=== PATIENT | female | born 1960 | race Caucasian/White ===

== ENCOUNTER 2016-09-16 18:00 | Observation (INO) | payer BC, OTHER ==
[2016-09-16] MEDS ORDERED: Ondansetron INJ* 2 MG/ML VIAL IV PRN (18:31)
[2016-09-16] MEDS ORDERED: Metoclopramide IV* 5 MG/ML 2 ML VIAL IV PRN (18:32)
[2016-09-16] MEDS ORDERED: Prochlorperazine TAB* 10 MG PO PRN (18:33)
[2016-09-16] MEDS ORDERED: PROCHLORPERAZINE INJ 5 MG/ML 2 ML VIAL IV PRN (18:33)
[2016-09-16] MEDS ORDERED: traZODone TAB* 50 MG TAB PO PRN (18:34)
[2016-09-16] MEDS ORDERED: Acetaminophen TAB* 325 MG PO PRN (18:34)
[2016-09-16] MEDS: Heparin VIAL(*) 5000 UNITS/ML VIAL (FIVE THOUSAND) SUBCUT SCH (21:33)
[2016-09-16] MEDS: Morphine INJ* 10 MG/ML 1 ML CARPUJECT IV PRN (21:39)
[2016-09-17] MEDS: NS 0.9% 1000 ML* 1,000 ML IV SCH ×2 (01:15→08:14)
[2016-09-17] MEDS: Morphine INJ* 10 MG/ML 1 ML CARPUJECT IV PRN (03:49)
[2016-09-17 06:32] LABS: Hematocrit 39 % (35-47); Mean Corpuscular HGB Conc 34 g/dl (31-36); Mean Corpuscular Hemoglobin 31 pg (27-31); Mean Corpuscular Volume 91 fL (80-97); Mean Platelet Volume 9 um3 (7.4-10.4); Red Blood Count 4.23 10^6/ul (4.0-5.4); Red Cell Distribution Width 14 % (10.5-15); White Blood Count 10.8 10^3/ul (3.5-10.8)
[2016-09-17] MEDS: Heparin VIAL(*) 5000 UNITS/ML VIAL (FIVE THOUSAND) SUBCUT SCH (06:38)
[2016-09-17 06:52] LABS: Albumin 3.3 g/dL (3.2-5.2); BUN/Creatinine Ratio 21.4 (8-20); Calcium 7.4 mg/dL (8.6-10.3); EGFR African American 110.9 (>60); EGFR Non-African American 86.2 (>60); Globulin 2.5 g/dL (2-4); Potassium 3.1 mmol/L (3.5-5.0); Total Bilirubin 1.4 mg/dL (0.2-1.0); Total Protein 5.8 g/dL (6.4-8.9)
[2016-09-17 08:53] VITALS: BP 117/60
--- NOTE | 2016-09-17 11:09 | PN ---
Progress Note - Progress Note SOAP: Subjective: []Better today. Nausea medication x 2 overnight and not needed this am. Still abd cramping, diarrhea stopped. No fever or chills. Acetaminophen (Tylenol Tab*) 650 mg PO Q6H PRN PRN Reason: NOT SPECIFIED Heparin Sodium (Porcine) (Heparin Vial(*)) 5,000 units SUBCUT Q8HR [facility] Last Admin: 09/17/16 06:38 Dose: 5,000 units Sodium Chloride (Ns 0.9% 1000 Ml*) 1,000 mls @ 150 mls/hr IV PER RATE [facility] Last Admin: 09/17/16 08:14 Dose: 150 mls/hr Metoclopramide HCl (Reglan Iv*) 10 mg IV Q6H PRN PRN Reason: NOT SPECIFIED Morphine Sulfate (Morphine Inj (Syringe)*) 5 mg IV Q6H PRN PRN Reason: PAIN Last Admin: 09/17/16 03:49 Dose: 5 mg Ondansetron HCl (Zofran Inj*) 8 mg IV Q8H PRN PRN Reason: NAUSEA/VOMITING Last Admin: 09/16/16 19:28 Dose: 8 mg Prochlorperazine (Compazine Tab*) 10 mg PO Q6H PRN PRN Reason: NOT SPECIFIED Prochlorperazine Edisylate (Compazine Inj*) 10 mg IV Q6H PRN PRN Reason: NOT SPECIFIED Last Admin: 09/17/16 01:20 Dose: 10 mg Trazodone HCl (Desyrel Tab*) 50 mg PO BEDTIME PRN PRN Reason: SLEEP Last Admin: 09/16/16 21:39 Dose: 50 mg Objective: [] Vital Signs Temp Pulse Resp BP Pulse Ox 98.4 F 72 14 117/60 93 09/17/16 07:45 09/17/16 07:45 09/17/16 08:00 09/17/16 07:45 09/17/16 07:45 HEENT - negative CTA. s. RRR S1S2 Diffuse tenderness, no rebound. No masses or HSM Ext w/o edema Assessment: []Acute gastroenteritis, likely viral. Plan: []1. Will discharge home 2. BRAT diet for several days then expand 3. Low K, will improve as oral intake improves, eat bananas 4. Keep regular follow up, call with additional symptoms
--- NOTE | 2016-10-06 00:43 | DS ---
HISTORY AND PHYSICAL FOR OBV DISCHARGE: ADDENDUM: She was admitted with antiemetics and hydration. She received nausea medicine and did better. This morning eating well. No additional nausea and feels ready to be discharged. No additional studies or tests ordered. She will be discharged to home. Light diet, BRAT. Fluids for several days and then advanced as julia erated. Keep regular followup with Dr. Serrano. [id number]/CPS #: [id number]
== END 2016-09-17 12:55 | disposition home or self-care (01) ==
LOC: INTOOBSV 18:00 → MED 18:00
PROVIDERS: ADMIT Internal Medicine Hematology & Oncology; ATTEND Internal Medicine Hematology & Oncology
DX: K52.9 Noninfective gastroenteritis and colitis, unspecified (principal); R10.9 Unspecified abdominal pain; R19.7 Diarrhea, unspecified; K21.9 Gastro-esophageal reflux disease without esophagitis; C50.911 Malignant neoplasm of unspecified site of right female breast; Z17.0 Estrogen receptor positive status [ER+]; Z88.5 Allergy status to narcotic agent; Z88.2 Allergy status to sulfonamides
CPT/HCPCS: 36415; 80053; 82272; 83735; 85025; 85027; 99217; 99219; A9270-GY; G0378; J0780; J1644; J2270; J2405; Q0164

== ENCOUNTER 2018-12-19 11:04 | Emergency (ER) | payer MEDICARE, BC ==
--- NOTE | 2018-12-19 11:17 | ED ---
Abdominal Pain/Female - HPI Summary HPI Summary: This patient is a 58 year old F presenting to [facility] with a chief complaint of abdominal cramping and nausea for the past four days worsening this morning. She additionally reports recent constipation that has change to diarrhea. Denies vomiting. Pain rated 6/10 in severity. Patient took 4mg X2 Zofran, prescribed by Dr. Tovar, without significant relief. Patient is currently on chemotherapy for breast cancer with metastasis to the sternum and lungs. Allergies reviewed. Patient sent to the ED by Dr. Tovar. - History of Current Complaint Chief Complaint: EDAbdPain Stated Complaint: "CHEMO PT ABD CRAMPING PER PT" Time Seen by Provider: 12/19/18 11:15 Hx Obtained From: Patient Onset/Duration: Gradual Onset, Lasting Days Timing: Constant Severity Currently: Moderate Pain Intensity: 5 Pain Scale Used: 0-10 Numeric Location: Diffuse Character: Cramping Alleviating Factor(s): Nothing Associated Signs and Symptoms: Positive: Constipation, Nausea, Diarrhea. Negative: Vomiting Allergies/Adverse Reactions: Allergies Allergy/AdvReac Type Severity Reaction Status Date / Time oxycodone Allergy Intermediate Rash Verified 12/19/18 20:46 Sulfa (Sulfonamide Allergy Intermediate Rash Verified 12/19/18 20:46 Antibiotics) CHLOROPREP? Allergy RED, ITCHY Uncoded 12/19/18 20:46 SKIN PAIN KILLER Allergy N/V Uncoded 12/19/18 20:46 Home Medications: Home Medications Coreg TAB* 3.125 mg PO DAILY 12/19/18 [History Confirmed 12/19/18] Flovent Hfa 44 mcg(NF) 44 mcg INH QID PRN 12/19/18 [History Confirmed 12/19/18] Rosuvastatin Calcium 40 mg PO BEDTIME 12/19/18 [History Confirmed 12/19/18] Zofran 4 MG Tab* 4 mg PO Q4HR 12/19/18 [History Confirmed 12/19/18] PMH/Surg Hx/FS Hx/Imm Hx Endocrine/Hematology History: Reports: Hx Anemia - A CHILD Denies: Hx Diabetes, Hx Systemic Lupus Erythematosus Cardiovascular History: Denies: Hx Congestive Heart Failure, Hx Hypertension, Other Cardiovascular Problems/Disorders Respiratory History: Reports: Hx Asthma GI History: Reports: Hx Gastroesophageal Reflux Disease - ON MEDS Comment Only: Other GI Disorders - reflux History: Denies: Hx Dialysis, Hx Renal Disease Musculoskeletal History: Reports: Hx Arthritis - ARTHRITIS IN BACK, Hx Bursitis - SHOULDERS, Hx Tendonitis - SHOULDERS Denies: Hx Rheumatoid Arthritis Comment Only: Other Musculoskeletal History - left litte toe Sensory History: Reports: Hx Contacts or Glasses - READING GLASSES Denies: Hx Hearing Aid Opthamlomology History: Reports: Hx Contacts or Glasses - READING GLASSES Neurological History: Denies: Other Neuro Impairments/Disorders - Cancer History Cancer Type, Location and Year: BREAST Hx Chemotherapy: Yes - BREAST Hx Radiation Therapy: Yes - BREAST, 09/05 [facility] - Surgical History Surgery Procedure, Year, and Place: lumpectomy 08/14/12 left side, tonsils, port placement and removal Hx Anesthesia Reactions: Yes - DIFF WAKING UP Infectious Disease History: No Infectious Disease History: Denies: Traveled Outside the [place] in Last 30 Days - Family History Known Family History: Negative: Renal Disease - Social History Alcohol Use: Rare Substance Use Type: Reports: None Smoking Status (MU): Never Smoked Tobacco Review of Systems Negative: Fever Positive: Abdominal Pain, Diarrhea, Nausea. Negative: Vomiting All Other Systems Reviewed And Are Negative: Yes Physical Exam - Summary Physical Exam Summary: GENERAL: Patient is a well-developed and nourished F who is lying comfortable in the stretcher. Patient is not in any acute respiratory distress. HEAD AND FACE: Normocephalic EYES: PERRLA, EOMI x 2. EARS: Hearing grossly intact. MOUTH: Oropharynx within normal limits. NECK: Supple, trachea is midline, no adenopathy, no JVD, no carotid bruit. CHEST: Symmetric, no tenderness at palpation LUNGS: Clear to auscultation bilaterally. No wheezing or crackles. CVS: Regular rate and rhythm, S1 and S2 present, no murmurs or gallops appreciated. ABDOMEN: Soft, with diffuse mild tenderness to palpation. Bowel sounds are normal. No abnormal abdominal pulsations. EXTREMITIES: Full ROM in all major joints, no edema, no cyanosis or clubbing. NEURO: Alert and oriented x 3. No acute neurological deficits. Speech is normal and follows commands. SKIN: Dry and warm Triage Information Reviewed: Yes Vital Signs On Initial Exam: Initial Vitals Temp Pulse Resp BP Pulse Ox 97.1 F 76 16 145/89 96 12/19/18 11:06 12/19/18 11:06 12/19/18 11:06 12/19/18 11:06 12/19/18 11:06 Vital Signs Reviewed: Yes Diagnostics - Vital Signs Vital Signs Temp Pulse Resp BP Pulse Ox 12/19/18 11:06 97.1 F 76 16 145/89 96 - Laboratory Result Diagrams: 12/19/18 11:49 12/19/18 11:49 Lab Statement: Any lab studies that have been ordered have been reviewed, and results considered in the medical decision making process. - CT CT A/P CT Interpretation Completed By: Radiologist Summary of CT Findings: 1. There is questionable mild bowel wall thickening involving the distal and terminal. ileum. Please correlate to clinical signs or symptoms of infectious or inflammatory. enteritis. 2. Normal appendix. 3. Chronic appearing and there are degenerative findings described in the body the report. unlikely to be related to the patient's current presentation. ED Physician has reviewed this report. Abdominal Pain Fem Course/Dx - Course Course Of Treatment: 58 year old F presenting to [facility] with a chief complaint of abdominal cramping and nausea for the past four days worsening this morning. Patient took 4mg X2 Zofran, prescribed by Dr. Tovar, without significant relief. Patient is currently on chemotherapy for breast cancer with metastasis to the sternum and lungs. Bloodwork obtained total bilirubin of 3.5 and AST of 45 but is similar compared to previous. UA is unremarkable A CT A/P reveals, " 1. There is questionable mild bowel wall thickening involving the distal and terminal. ileum. Please correlate to clinical signs or symptoms of infectious or inflammatory. enteritis. 2. Normal appendix. 3. Chronic appearing and there are degenerative findings described in the body the report. unlikely to be related to the patient's current presentation.". At 15:14 ase discussed with patient's oncologist, Dr. Tovar, who recommends discharge with abx and pain medication and to follow up with him. Patient is given prescription for flagyl, augmentin, phenergan, and tramadolI discussed results with patient, and she reports feeling better. She is hemodynamically stable and safe for discharge. Strict return precautions given and she will otherwise follow up with Dr. Tovar. - Diagnoses Provider Diagnoses: Abdominal pain, Enteritis Discharge - Sign-Out/Discharge Documenting (check all that apply): Patient Departure - discharge Patient Received Moderate/Deep Sedation with Procedure: No - Discharge Plan Condition: Stable Disposition: HOME Prescriptions: Amoxicillin/Clavulanate TAB* [Augmentin TAB 875*] 875 mg PO BID #20 tab metroNIDAZOLE [Flagyl] 500 mg PO TID #30 tablet Promethazine TAB* [Phenergan TAB*] 25 mg PO Q8H PRN #12 tab PRN Reason: Nausea traMADol TAB* [Ultram*] 50 mg PO Q8H PRN #12 tab MDD 3 PRN Reason: Pain Patient Education Materials: Enteritis (ED) Referrals: Franck Tovar MD [Medical Doctor] - 2 Days Additional Instructions: RETURN TO THE EMERGENCY DEPARTMENT FOR CHANGING OR WORSENING SYMPTOMS. Otherwise follow up with Dr. Tovar. - Billing Disposition and Condition Condition: STABLE Disposition: Home - Attestation Statements Document Initiated by Eddy: Yes Documenting Scribe: Romi Badillo Provider For Whom Eddy is Documenting (Include Credential): Jose Maria MD Scribe Attestation: Romi Gooden, scribed for Jose Maria MD on 12/19/18 at 2106. Scribe Documentation Reviewed: Yes Provider Attestation: The documentation as recorded by the Romi mata accurately reflects the service I personally performed and the decisions made by , Jose Maria MD Status of Scribe Document: Viewed
[2018-12-19] MEDS ORDERED: NS 0.9% 1000 ML** 1,000 ML IV ONE (11:21)
[2018-12-19] MEDS ORDERED: Morphine 4 MG/ML VIAL (1 ml) 4 MG/ML VIAL IV ONE (11:23)
[2018-12-19] MEDS ORDERED: Metoclopramide IV* 5 MG/ML 2 ML VIAL IV ONE (11:23)
[2018-12-19 12:01] LABS: ABS Eosinophils 0.1 10^3/ul (0-0.6); ABS Lymphocytes 0.9 10^3/ul (1.0-4.8); ABS Monocytes 0.4 10^3/ul (0-0.8); ABS Neutrophils 3.7 10^3/ul (1.5-7.7); Eosinophil % 2.4 %; Hematocrit 38 % (35-47); Hemoglobin 12.8 g/dL (12.0-16.0); Lymphocyte % 17.7 %; Mean Corpuscular HGB Conc 34 g/dL (31-36); Mean Corpuscular Hemoglobin 35 pg (27-31); Mean Corpuscular Volume 104 fL (80-97); Mean Platelet Volume 7.8 fL (7.4-10.4); Nucleated Red Blood Cells % 0.1; Platelet Count 204 10^3/uL (150-450); Red Blood Count 3.63 10^6 /uL (3.70-4.87); Red Cell Distribution Width 19 % (10.5-15); White Blood Count 5.2 10^3/uL (3.5-10.8)
[2018-12-19 12:19] LABS: ALT 42 U/L (7-52); AST 45 U/L (13-39); Albumin 3.9 g/dL (3.2-5.2); Albumin/Globulin Ratio 1.7 (1-3); Alkaline Phosphatase 59 U/L (34-104); Anion Gap 8 mmol/L (2-11); BUN/Creatinine Ratio 16.4 (8-20); Blood Urea Nitrogen 12 mg/dL (6-24); C Reactive Protein < 1.00 mg/L (<8.01); CO2 Carbon Dioxide 25 mmol/L (22-32); Calcium 8.2 mg/dL (8.6-10.3); Chloride 103 mmol/L (101-111); EGFR African American 98.7 (>60); EGFR Non-African American 81.6 (>60); Globulin 2.3 g/dL (2-4); Glucose 118 mg/dL (70-100); Potassium 3.4 mmol/L (3.5-5.0); Sodium 136 mmol/L (135-145); Total Protein 6.2 g/dL (6.4-8.9)
[2018-12-19 14:11] LABS: Urine Appearance Clear; Urine Bacteria Absent (Absent); Urine Bilirubin Negative (Negative); Urine Blood 1+ (Negative); Urine Color Straw; Urine Glucose Negative (Negative); Urine Ketones Negative (Negative); Urine Nitrite Negative (Negative); Urine Protein Negative (Negative); Urine Red Blood Cell 1+(3-5/hpf) (Absent); Urine Specific Gravity 1.005 (1.010-1.030); Urine Squamous Epithelial Cell Present (Absent); Urine Urobilinogen Negative (Negative); Urine White Blood Cell Trace(0-5/hpf) (Absent)
[2018-12-19] MEDS ORDERED: Iohexol 300* (CONTRAST) 10 ML SDV IV ONE (14:25)
[2018-12-19] MEDS ORDERED: Amoxicillin/Clavulanate TAB* 875 MG PO ONE (15:19)
[2018-12-19] MEDS ORDERED: metroNIDAZOLE * 500 MG TABLET PO ONE (16:00)
[2018-12-19 16:07] VITALS: BP 128/86
== END 2018-12-19 16:06 | disposition home or self-care (01) ==
LOC: ED 11:04
DX: K52.9 Noninfective gastroenteritis and colitis, unspecified (principal); R10.9 Unspecified abdominal pain; C50.919 Malignant neoplasm of unspecified site of unspecified female breast; C78.02 Secondary malignant neoplasm of left lung; C78.01 Secondary malignant neoplasm of right lung; C79.51 Secondary malignant neoplasm of bone; K21.9 Gastro-esophageal reflux disease without esophagitis; J45.909 Unspecified asthma, uncomplicated; Z88.2 Allergy status to sulfonamides; Z88.5 Allergy status to narcotic agent; Z88.8 Allergy status to other drugs, medicaments and biological substances; Z79.899 Other long term (current) drug therapy
CPT/HCPCS: 36415; 74177; 80053; 81003; 81015; 82140; 83605; 83690; 85025; 85730; 86140; 87040; 87086; 96361; 96374; 96375; 99283; A9270-GY; J2270; J2765; Q9967

== ENCOUNTER 2018-12-19 20:43 | Inpatient (IN) | payer MEDICARE, BC ==
[2018-12-19] MEDS ORDERED: NS 0.9% 1000 ML** 2,000 ML IV ONE (22:30)
--- NOTE | 2018-12-19 22:30 | ED ---
GI/ HPI - HPI Summary HPI Summary: This patient is a 58 year old F brought to ED via EMS with a chief complaint of abdominal cramping and N/D since 0900 this morning. Patient was in the ED earlier today for same symptoms and was diagnosed with gastroenteritis. Patient reports not feeling better. She was given antibiotics, but vomited them up immediately. Patient is on Xeloda chemotherapy, just finishing her second cycle. The patient rates the pain 10/10 in severity. Symptoms aggravated by nothing. Symptoms alleviated by nothing. Patient denies fever. PMHx of metastatic breast CA, asthma, GERD. PSHx of lumpectomy, but no abdominal surgery. Denies FHx of renal disease. Patient rarely uses alcohol, does not use substances or tobacco. - History of Current Complaint Chief Complaint: EDNauseaVomitDiarrh Time Seen by Provider: 12/19/18 22:21 Stated Complaint: ABD PAIN PER EMS Hx Obtained From: Patient Onset/Duration: Started Hours Ago - 0900 this morning, Still Present, Worse Since Severity: Severe Pain Intensity: 10 Pain Characteristics: Cramping Associated Signs and Symptoms: Positive: Negative - Fever, Nausea, Diarrhea Aggravating Factor(s): Nothing Alleviating Factor(s): Nothing - Additional Pertinent History Primary Care Physician: [id number] - Allergy/Home Medications Allergies/Adverse Reactions: Allergies Allergy/AdvReac Type Severity Reaction Status Date / Time oxycodone Allergy Intermediate Rash Verified 12/19/18 20:46 Sulfa (Sulfonamide Allergy Intermediate Rash Verified 12/19/18 20:46 Antibiotics) chlorhexidine Allergy Itching Verified 12/20/18 00:27 meperidine [From Demerol] AdvReac Nausea And Verified 12/20/18 00:27 Vomiting PMH/Surg Hx/FS Hx/Imm Hx Endocrine/Hematology History: Reports: Hx Anemia - A CHILD Denies: Hx Diabetes, Hx Systemic Lupus Erythematosus Cardiovascular History: Denies: Hx Congestive Heart Failure, Hx Hypertension, Other Cardiovascular Problems/Disorders Respiratory History: Reports: Hx Asthma GI History: Reports: Hx Gastroesophageal Reflux Disease - ON MEDS Comment Only: Other GI Disorders - reflux History: Denies: Hx Dialysis, Hx Renal Disease Musculoskeletal History: Reports: Hx Arthritis - ARTHRITIS IN BACK, Hx Bursitis - SHOULDERS, Hx Tendonitis - SHOULDERS Denies: Hx Rheumatoid Arthritis Comment Only: Other Musculoskeletal History - left litte toe Sensory History: Reports: Hx Contacts or Glasses - READING GLASSES Denies: Hx Hearing Aid Opthamlomology History: Reports: Hx Contacts or Glasses - READING GLASSES Neurological History: Denies: Other Neuro Impairments/Disorders - Cancer History Cancer Type, Location and Year: BREAST Hx Chemotherapy: Yes - BREAST Hx Radiation Therapy: Yes - BREAST, 09/05 [facility] - Surgical History Surgery Procedure, Year, and Place: lumpectomy 08/14/12 left side, tonsils, port placement and removal Hx Anesthesia Reactions: Yes - DIFF WAKING UP Infectious Disease History: No Infectious Disease History: Denies: Traveled Outside the [place] in Last 30 Days - Family History Known Family History: Negative: Renal Disease - Social History Alcohol Use: Rare Substance Use Type: Reports: None Smoking Status (MU): Never Smoked Tobacco Review of Systems Negative: Fever Positive: Abdominal Pain - Cramps, Vomiting, Diarrhea, Nausea All Other Systems Reviewed And Are Negative: Yes Physical Exam - Summary Physical Exam Summary: Appearance:Well-appearing, Well-nourished, lying in bed comfortable Skin:Warm, dry, no obvious rash Eyes:sclera anicteric, no conjunctival pallor ENT:mucous membranes moist Neck:deferred Respiratory:No signs of respiratory distress Cardiovascular:Appears well perfused, pulses are nml Abdomen:deferred Musculoskeletal:Moving all 4 extremities without obvious discomfort Neurological:Awakeand alert, mentation is normal, speech is fluent and appropriate Psychiatric:affect is normal, does not appear anxious or depressed Triage Information Reviewed: Yes Vital Signs On Initial Exam: Initial Vitals Temp Pulse Resp BP Pulse Ox 97.8 F 70 16 151/75 98 12/19/18 20:44 12/19/18 20:44 12/19/18 20:44 12/19/18 20:44 12/19/18 20:44 Vital Signs Reviewed: Yes Diagnostics - Vital Signs Vital Signs Temp Pulse Resp BP Pulse Ox 12/19/18 20:44 97.8 F 70 16 151/75 98 - Laboratory Result Diagrams: 12/20/18 08:27 12/20/18 08:27 Lab Statement: Any lab studies that have been ordered have been reviewed, and results considered in the medical decision making process. GIGU Course/Dx - Course Course Of Treatment: This patient is a 58 year old F brought to ED via EMS with a chief complaint of abdominal cramping and N/D since 0900 this morning. Discussed patient case with Dr. Tovar, oncologist, who recommended patient be admitted. Discussed patient case with Dr. Blood, hospitalist, who accepted the patient for admission [place] [facility]. In the ED course, patient received fluids and fentanyl. Patient will be admitted to [facility] with diagnosis of gastroenteritis. Patient understands and agrees with this plan. - Diagnoses Provider Diagnoses: Gastroenteritis - Physician Notifications Discussed Care Of Patient With: Cuate Tovar MD Time Discussed With Above Provider: 10:37 Instructed by Provider To: Other - Discussed patient case with Dr. Tovar, oncologist, who recommended patient be admitted. At 2058 discussed patient case with Dr. Blood, hospitalist, who accepted the patient for admission to [facility] Discharge - Sign-Out/Discharge Documenting (check all that apply): Patient Departure Patient Received Moderate/Deep Sedation with Procedure: No - Discharge Plan Condition: Stable Disposition: ADMITTED TO [facility] - Billing Disposition and Condition Condition: STABLE Disposition: Admitted to [facility] - Attestation Statements Document Initiated by Eddy: Yes Documenting Scribe: Nader Curits Provider For Whom Eddy is Documenting (Include Credential): David Bedolla MD Scribe Attestation: Nader Gooden, scribed for David Bedolla MD on 12/21/18 at 0224. Scribe Documentation Reviewed: Yes Provider Attestation: The documentation as recorded by the Nader mata accurately reflects the service I personally performed and the decisions made by me, David Bedolla MD Status of Scribe Document: Viewed
[2018-12-19] MEDS ORDERED: fentaNYL* 50 MCG/ML 2 ML VIAL (100 MCG VIAL) IV SLOW PU ONE (22:31)
[2018-12-19] MEDS ORDERED: Metoclopramide IV* 5 MG/ML 2 ML VIAL IV ONE (23:31)
[2018-12-19] MEDS ORDERED: Metoclopramide IV* 5 MG/ML 2 ML VIAL ONE (23:33)
[2018-12-19] MEDS ORDERED: Al Hydrox/Mg Hydrox/Simet LIQ* 30 ML UDC PO PRN (23:56)
[2018-12-19] MEDS ORDERED: Acetaminophen TAB* 325 MG PO PRN (23:56)
[2018-12-19] MEDS ORDERED: Mometasone 220 MCG MDI INH PRN (23:58)
[2018-12-20] MEDS ORDERED: Morphine INJ* 10 MG/ML 1 ML CARPUJECT IV ONE (00:08)
[2018-12-20] MEDS ORDERED: Morphine 4 MG/ML VIAL (1 ml) 4 MG/ML VIAL ONE (00:16)
[2018-12-20] MEDS: Ondansetron INJ* 2 MG/ML VIAL IV PRN ×4 (02:36→21:19)
--- NOTE | 2018-12-20 02:53 | HP ---
CC: Dr. Serrano, Dr. Tovar * HISTORY AND PHYSICAL: DATE OF ADMISSION: 12/20/18 PRIMARY CARE PROVIDER: Dr. Serrano from Oncology. CHIEF COMPLAINT: Nausea and vomiting. HISTORY OF PRESENT ILLNESS: Stephanie Pinto is a 58-year-old female with a history of metastatic breast cancer who presented to the hospital earlier on 08/08 complaining of nausea, vomiting, and abdominal pain and was diagnosed with gastroenteritis, sent home on Augmentin and Flagyl. She came back on 12/19 later on in the evening with continuation of the problems. The patient stated that she had been having diarrhea for the past 4 days and she started throwing up today. The diarrhea is approximately 3 to 5 bowel movements a day. The abdomen is sore "all over." The patient is currently undergoing chemotherapy with Xeloda as she is on day 13 out of 14-day treatment. The patient is going to be placed on overnight observation with a diagnosis of nausea and vomiting. PAST MEDICAL HISTORY: 1. Breast cancer, status post lumpectomy with metastases to ribs, sternum, and lungs. 2. History of asthma. 3. History of anemia. 4. Status post tonsillectomy in the past. MEDICATIONS AT HOME: Include: 1. Ultram 50 mg every 8 hours p.r.n. 2. Metronidazole just prescribed within the past few hours 500 mg 2 times a day. 3. Zofran 4 mg every 4 hours p.r.n. 4. Rosuvastatin 40 mg at bedtime. 5. Ranitidine 75 mg b.i.d. 6. Phenergan 25 mg every 8 hours p.r.n. 7. Morphine extended release 15 mg q.a.m., 30 mg at bedtime. 8. Flovent HFA 44 mcg inhalation 4 times a day p.r.n. 9. Aromasin 25 mg b.i.d. 10. Coreg 3.125 mg daily. 11. Zyrtec 10 mg daily. 12. Calcium carbonate 600 mg b.i.d. 13. Augmentin 875 mg b.i.d., just started 12/19/18. ALLERGIES: Include OXYCODONE which causes nausea and SULFA causes rash. FAMILY HISTORY: Positive for father who in his 50s secondary to melanoma. Mother with history of CHF, at the age of 72 of CHF. SOCIAL HISTORY: The patient denies any tobacco, alcohol or drug use. She named her sister, Manisha Walsh, as her surrogate. REVIEW OF SYSTEMS: Please see history of present illness. The patient stated that her chronic pain is usually contained with extended release morphine. Currently, she received fentanyl and abdominal discomfort had improved, but then later on she developed abdominal cramping. Abdominal pain is a cramping that is intermittent, but then she also has epigastric pain that is almost constant. She complains of nausea. All remaining 12 systems reviewed with the patient and were otherwise negative. PHYSICAL EXAMINATION GENERAL: The patient is a very pleasant 58-year-old female who is in no acute distress. Alert, awake, and oriented x3. VITAL SIGNS: Blood pressure of 149/67, heart rate of 73 and regular, respiratory rate 20, oxygen saturation 94% on room air, temperature of 97.8. HEENT: Head: Atraumatic and normocephalic. Eyes: Pupils are equal, reactive to light and accommodation. Oropharynx clear. Mucosa dry. NECK: Supple. No JVD. No bruits bilaterally. RESPIRATORY: Clear to auscultation bilaterally. CARDIOVASCULAR: Regular rate and rhythm. No murmur. ABDOMEN: Soft, tenderness in the epigastrium with no rebound and no guarding. Bowel sounds are present in all 4 quadrants. EXTREMITIES: There is no edema. Pulses +2 bilaterally. There is no clubbing or cyanosis. SKIN: On evaluation of the skin, no ecchymotic areas or rashes noted. DIAGNOSTIC STUDIES/LAB DATA: Laboratory data and studies performed in the ED included: On 12/19/18, the patient's CT of abdomen and pelvis showed impression : There is questionable mild bowel wall thickening involving the distal and terminal ileum. Please correlate with clinical signs and symptoms of infection or inflammatory enteritis. Normal appendix. Chronic-appearing and degenerative findings described in the body of the report and likely to be related to the patient's current presentation." The patient's lab work obtained on 12/19/18 showed white blood cell count 5.2, hemoglobin 12.8, hematocrit of 38, and platelets of 204. Sodium of 136, potassium 3.4, chloride 103, carbon dioxide 25, BUN 12, creatinine 0.73. Liver function tests showed bilirubin of 3.5, AST of 45, ALT of 42, alkaline phosphatase of 59. Liver function tests otherwise unremarkable. C-reactive protein of below 1, lipase of 10. ASSESSMENT AND PLAN: 1. Nausea, vomiting, abdominal pain due to enteritis. At this point, I will cover the patient's presentation with antibiotics due to her current chemotherapy treatment. She is going to be placed on ceftriaxone and Flagyl. Stool cultures are going to be obtained. The patient is going to be placed on intravenous fluids and supportive treatment is going to be instituted with Zofran IV for nausea. 2. For the patient's chronic pain, her extended release morphine is going to be continued. 3. The patient's code status is full and her surrogate is her sister, as mentioned above. TIME SPENT: Approximately 55 minutes were spent on admission of this patient, more than half that time was spent nypt-ly-beon with the patient during the interview and physical exam. [id number]/CPS #: [id number] MTDD
[2018-12-20] MEDS: Enoxaparin(*) 40 MG/0.4 ML SYR SUBCUT SCH ×2 (03:00→22:17)
[2018-12-20] MEDS: Morphine INJ* 2 MG/ML 1 ML SYRINGE (TWO MG - NEW SYRINGE VERSION) IV PRN ×2 (03:03→18:18)
[2018-12-20] MEDS: NS 0.9% 1000 ML** 1,000 ML IV SCH ×2 (03:06→14:25)
[2018-12-20] MEDS: cefTRIAXone(*) 1 GM in NS 0.9% 50 ML* 50 ML IVPB SCH (03:18)
[2018-12-20] MEDS ORDERED: Famotidine TAB* 20 MG PO ONE (03:38)
[2018-12-20] MEDS: metroNIDAZOLE IV 500 MG/100ML* 500 MG/100 ML BAG IVPB SCH ×3 (04:23→18:18)
[2018-12-20] MEDS: Morphine TAB Extended Release (*) 15 MG TAB.ER PO SCH ×2 (08:11→21:20)
[2018-12-20] MEDS: Carvedilol TAB* 3.125 MG PO SCH (08:12)
[2018-12-20] MEDS: Famotidine TAB* 20 MG PO SCH ×2 (08:12→21:20)
[2018-12-20] MEDS: EXEMESTANE 25 MG PO SCH (08:12)
[2018-12-20 08:39] LABS: ABS Lymphocytes 1.4 10^3/ul (1.0-4.8); ABS Monocytes 0.5 10^3/ul (0-0.8); Eosinophil % 0.1 %; Hematocrit 34 % (35-47); Hemoglobin 11.8 g/dL (12.0-16.0); Lymphocyte % 23.8 %; Mean Corpuscular HGB Conc 34 g/dL (31-36); Mean Corpuscular Hemoglobin 36 pg (27-31); Mean Corpuscular Volume 104 fL (80-97); Mean Platelet Volume 7.6 fL (7.4-10.4); Nucleated Red Blood Cells % 0.1; Platelet Count 209 10^3/uL (150-450); Red Cell Distribution Width 18 % (10.5-15)
[2018-12-20 08:56] LABS: BUN/Creatinine Ratio 19.7 (8-20); EGFR African American 121.5 (>60); EGFR Non-African American 100.4 (>60)
[2018-12-20] MEDS: traMADol TAB* 50 MG PO PRN (12:38)
[2018-12-20] MEDS: KCL 20 MEQ/100 ML IVPREMIX* 20 MEQ/100 ML BAG IV SCH ×2 (12:38→16:41)
[2018-12-21] MEDS: cefTRIAXone(*) 1 GM in NS 0.9% 50 ML* 50 ML IVPB SCH (01:25)
[2018-12-21] MEDS: metroNIDAZOLE IV 500 MG/100ML* 500 MG/100 ML BAG IVPB SCH ×3 (02:10→17:33)
[2018-12-21] MEDS: NS 0.9% 1000 ML** 1,000 ML IV SCH (02:34)
[2018-12-21 06:04] LABS: ABS Eosinophils 0.2 10^3/ul (0-0.6); ABS Lymphocytes 1.5 10^3/ul (1.0-4.8); ABS Monocytes 0.4 10^3/ul (0-0.8); Eosinophil % 4.1 %; Hematocrit 29 % (35-47); Hemoglobin 10.1 g/dL (12.0-16.0); Lymphocyte % 36.8 %; Mean Corpuscular HGB Conc 35 g/dL (31-36); Mean Corpuscular Hemoglobin 36 pg (27-31); Mean Corpuscular Volume 104 fL (80-97); Mean Platelet Volume 7.1 fL (7.4-10.4); Nucleated Red Blood Cells % 0.1; Platelet Count 175 10^3/uL (150-450); Red Cell Distribution Width 19 % (10.5-15)
[2018-12-21] MEDS: traMADol TAB* 50 MG PO PRN (06:10)
[2018-12-21 06:24] LABS: BUN/Creatinine Ratio 11.1 (8-20); Calcium 6.8 mg/dL (8.6-10.3); EGFR African American 139.8 (>60); EGFR Non-African American 115.6 (>60)
[2018-12-21] MEDS: Ondansetron INJ* 2 MG/ML VIAL IV PRN ×3 (07:14→21:28)
[2018-12-21] MEDS: EXEMESTANE 25 MG PO SCH (07:19)
[2018-12-21] MEDS: Morphine TAB Extended Release (*) 15 MG TAB.ER PO SCH ×2 (09:38→21:27)
[2018-12-21] MEDS: Famotidine TAB* 20 MG PO SCH ×2 (09:39→21:26)
[2018-12-21] MEDS: Carvedilol TAB* 3.125 MG PO SCH (09:39)
[2018-12-21] MEDS: Morphine INJ* 2 MG/ML 1 ML SYRINGE (TWO MG - NEW SYRINGE VERSION) IV PRN ×3 (09:39→21:28)
--- NOTE | 2018-12-21 11:08 | PN ---
Progress Note - Progress Note Date of Service: 12/21/18 SOAP: Subjective: []C2D1 Capecitabine 12/07/18 (last dose 12/18, D1) currently on hold. Notes she started to feel constipated 12/15 and so drank a bunch of prune juice. Following day she had some nausea and came home from work early. By 12/17 was having N/V and tried to use anti-emetics, however became severe by 12/20 when presented to ER. CT with enteritis @ ileum, given PO abx., however was unable to keep anything down. Today still having some cramping that she calls, "grabbing" but has tolerating PO intake and no emesis. Having significant diarrhea that is uncontrolled and has been incontinent. Greenish without foul smell. Feet felt like they had blisters, but didn't. Hasn't been walking much since admission. Fingers bright red without blisters or peeling. Medications: Acetaminophen (Tylenol Tab*) 650 mg PO Q4H PRN PRN Reason: FEVER/PAIN Last Admin: 12/20/18 16:41 Dose: 650 mg Al Hydrox/Mg Hydrox/Simethicone (Maalox Plus*) 30 ml PO Q6H PRN PRN Reason: INDIGESTION Last Admin: 12/20/18 05:40 Dose: 30 ml Carvedilol (Coreg Tab*) 3.125 mg PO DAILY [facility] Last Admin: 12/21/18 09:39 Dose: 3.125 mg Enoxaparin Sodium (Lovenox(*)) 40 mg SUBCUT BEDTIME [facility] Last Admin: 12/20/18 22:17 Dose: 40 mg Exemestane (Aromasin(Nf)) 25 mg PO DAILY [facility] Last Admin: 12/21/18 07:19 Dose: Not Given Famotidine (Pepcid Tab*) 20 mg PO BID [facility] Last Admin: 12/21/18 09:39 Dose: 20 mg Sodium Chloride (Ns 0.9% 1000 Ml) 1,000 mls @ 100 mls/hr IV PER RATE [facility] Last Admin: 12/21/18 02:34 Dose: 100 mls/hr Metronidazole/Sodium Chloride (Flagyl 500 Mg Ivpb*) 500 mg in 100 mls @ 100 mls /hr IVPB Q8H [facility] Last Admin: 12/21/18 09:39 Dose: 100 mls/hr Ceftriaxone Sodium 1 gm/ (Sodium Chloride) 50 mls @ 200 mls/hr IVPB Q24H [facility] Last Admin: 12/21/18 01:25 Dose: 200 mls/hr Mometasone Furoate (Asmanex 220 Mcg Mdi *) 1 puff INH BEDTIME PRN PRN Reason: SOB/WHEEZING Morphine Sulfate (Ms Contin(*)) 15 mg PO QAM [facility] Last Admin: 12/21/18 09:38 Dose: 15 mg Morphine Sulfate (Ms Contin(*)) 30 mg PO BEDTIME [facility] Last Admin: 12/20/18 21:20 Dose: 30 mg Morphine Sulfate (Morphine Inj (Syringe))*) 2 mg IV Q2H PRN PRN Reason: PAIN Last Admin: 12/21/18 09:39 Dose: 2 mg Ondansetron HCl (Zofran Inj*) 4 mg IV Q4H PRN PRN Reason: NAUSEA/VOMITING Last Admin: 12/21/18 07:14 Dose: 4 mg Tramadol HCl (Ultram*) 50 mg PO Q8H PRN PRN Reason: PAIN Last Admin: 12/21/18 06:10 Dose: 50 mg Objective: [] Vital Signs Temp Pulse Resp BP Pulse Ox 98.5 F 78 17 125/69 94 12/21/18 08:11 12/21/18 08:11 12/21/18 09:39 12/21/18 08:11 12/21/18 08:11 A&Ox3, EOMI, PERRLA HRR, S1S2 LS clear +BS, abd. soft and slightly tender Laboratory Results - last 24 hr 12/21/18 12/21/18 05:48 05:48 WBC 4.0 RBC 2.80 L Hgb 10.1 L Hct 29 L MCV 104 H MCH 36 H MCHC 35 RDW 19 H Plt Count 175 MPV 7.1 L Neut % (Auto) 48.8 Lymph % (Auto) 36.8 Chaves % (Auto) 9.6 Eos % (Auto) 4.1 Baso % (Auto) 0.7 Absolute Neuts (auto) 2.0 Absolute Lymphs (auto) 1.5 Absolute Monos (auto) 0.4 Absolute Eos (auto) 0.2 Absolute Basos (auto) 0.0 Absolute Nucleated RBC 0.0 Nucleated RBC % 0.1 Sodium 140 Potassium 3.0 L Chloride 108 Carbon Dioxide 25 Anion Gap 7 BUN 6 Creatinine 0.54 Est GFR ( Amer) 139.8 Est GFR (Non-Af Amer) 115.6 BUN/Creatinine Ratio 11.1 Glucose 103 H Calcium 6.8 L Assessment: []58 yo female with metastatic breast cancer recently progressed and now C2D15 Capecitabine admitted with enteritis, likely viral, however review of onset of symptoms question of role chemo played (aggravating underlying acute illness vs. cause). Diarrhea now main complaint with cont.'d hypokalemia. Plan: []1. Enteritis: cont. abx. and PRN antiemetics - check stool cultures as ordered, no evidence for c.diff - can start imodium 2. Hypokalemia: NS with 40 mEq KCl x1 L over 4 hrs followed by NS with 20 mEq KCl @ 100 mL/hr - repeat labs in AM 3. Diet as tolerated - recommend avoiding lots of diary and high acidity foods Dispo: inpt. for cont.'d management of severe enteritis, hopeful for d/c home tomorrow
[2018-12-21] MEDS ORDERED: NS 0.9% 1000 ML** 1,000 ML IV SCH (11:10)
[2018-12-21] MEDS ORDERED: NS 0.9% w/ 40 Meq KCL 1000 ML* 1,000 ML IV SCH (12:00)
[2018-12-21 12:10] LABS: Magnesium 1.8 mg/dL (1.9-2.7)
[2018-12-21] MEDS: Loperamide CAP* 2 MG PO PRN ×3 (12:41→21:26)
[2018-12-21] MEDS: NS 0.9% w/ 20 Meq KCL 1000 ML* 1,000 ML IV SCH (17:50)
[2018-12-21] MEDS: Enoxaparin(*) 40 MG/0.4 ML SYR SUBCUT SCH (21:34)
[2018-12-22] MEDS: cefTRIAXone(*) 1 GM in NS 0.9% 50 ML* 50 ML IVPB SCH (01:36)
[2018-12-22] MEDS: metroNIDAZOLE IV 500 MG/100ML* 500 MG/100 ML BAG IVPB SCH ×2 (02:01→09:56)
[2018-12-22] MEDS: Morphine INJ* 2 MG/ML 1 ML SYRINGE (TWO MG - NEW SYRINGE VERSION) IV PRN ×4 (03:52→19:48)
[2018-12-22] MEDS: Ondansetron INJ* 2 MG/ML VIAL IV PRN ×4 (03:52→19:48)
[2018-12-22] MEDS: Loperamide CAP* 2 MG PO PRN ×4 (04:48→20:08)
[2018-12-22 06:08] LABS: ABS Eosinophils 0.3 10^3/ul (0-0.6); ABS Lymphocytes 1.1 10^3/ul (1.0-4.8); ABS Monocytes 0.4 10^3/ul (0-0.8); ABS Neutrophils 1.7 10^3/ul (1.5-7.7); Eosinophil % 9.2 %; Hematocrit 31 % (35-47); Hemoglobin 10.8 g/dL (12.0-16.0); Lymphocyte % 30.4 %; Mean Corpuscular HGB Conc 35 g/dL (31-36); Mean Corpuscular Hemoglobin 36 pg (27-31); Mean Corpuscular Volume 105 fL (80-97); Mean Platelet Volume 7.5 fL (7.4-10.4); Nucleated Red Blood Cells % 0.2; Platelet Count 189 10^3/uL (150-450); Red Blood Count 2.97 10^6 /uL (3.70-4.87); Red Cell Distribution Width 19 % (10.5-15); White Blood Count 3.6 10^3/uL (3.5-10.8)
[2018-12-22 06:24] LABS: Albumin 3.1 g/dL (3.2-5.2); Albumin/Globulin Ratio 1.6 (1-3); BUN/Creatinine Ratio 6.7 (8-20); Calcium 6.7 mg/dL (8.6-10.3); EGFR African American 123.8 (>60); EGFR Non-African American 102.3 (>60); Globulin 1.9 g/dL (2-4); Magnesium 1.6 mg/dL (1.9-2.7); Potassium 3.2 mmol/L (3.5-5.0); Total Bilirubin 1.7 mg/dL (0.2-1.0)
[2018-12-22] MEDS: Carvedilol TAB* 3.125 MG PO SCH (08:48)
[2018-12-22] MEDS: Morphine TAB Extended Release (*) 15 MG TAB.ER PO SCH ×2 (08:48→20:01)
[2018-12-22] MEDS: Famotidine TAB* 20 MG PO SCH ×2 (08:48→20:01)
[2018-12-22] MEDS: EXEMESTANE 25 MG PO SCH (08:49)
[2018-12-22] MEDS ORDERED: Magnesium Sulf 4 GM/100 ML IV* 4,000 MG/100 ML BAG IVPB ONE (11:05)
[2018-12-22] MEDS: KCL 10 MEQ/50 ML IVPREMIX* 10 MEQ/50 ML BAG IV SCH ×3 (11:34→20:08)
--- NOTE | 2018-12-22 16:46 | PN ---
Progress Note - Progress Note Date of Service: 12/22/18 SOAP: Subjective: [Starting to feel better today. She was able to eat solid food for the first time this morning. Some nausea when she receives the antibiotics. No fevers. Diarrhea is slightly more formed, but still had 3 BMs prior to 11a this am. Still having some abdominal cramping.] Objective: [ Laboratory Results - last 24 hr 12/22/18 12/22/18 05:30 05:30 WBC 3.6 RBC 2.97 L Hgb 10.8 L Hct 31 L MCV 105 H MCH 36 H MCHC 35 RDW 19 H Plt Count 189 MPV 7.5 Neut % (Auto) 47.2 Lymph % (Auto) 30.4 Tompkins % (Auto) 12.0 Eos % (Auto) 9.2 Baso % (Auto) 1.2 Absolute Neuts (auto) 1.7 Absolute Lymphs (auto) 1.1 Absolute Monos (auto) 0.4 Absolute Eos (auto) 0.3 Absolute Basos (auto) 0.0 Absolute Nucleated RBC 0.0 Nucleated RBC % 0.2 Sodium 138 Potassium 3.2 L Chloride 106 Carbon Dioxide 26 Anion Gap 6 BUN 4 L Creatinine 0.60 Est GFR ( Amer) 123.8 Est GFR (Non-Af Amer) 102.3 BUN/Creatinine Ratio 6.7 L Glucose 106 H Calcium 6.7 L Magnesium 1.6 L Total Bilirubin 1.70 H D AST 23 ALT 27 Alkaline Phosphatase 47 Total Protein 5.0 L Albumin 3.1 L Globulin 1.9 L Albumin/Globulin Ratio 1.6 Acetaminophen (Tylenol Tab*) 650 mg PO Q4H PRN PRN Reason: FEVER/PAIN Last Admin: 12/20/18 16:41 Dose: 650 mg Al Hydrox/Mg Hydrox/Simethicone (Maalox Plus*) 30 ml PO Q6H PRN PRN Reason: INDIGESTION Last Admin: 12/20/18 05:40 Dose: 30 ml Carvedilol (Coreg Tab*) 3.125 mg PO DAILY [facility] Last Admin: 12/22/18 08:48 Dose: 3.125 mg Enoxaparin Sodium (Lovenox(*)) 40 mg SUBCUT BEDTIME [facility] Last Admin: 12/21/18 21:34 Dose: 40 mg Exemestane (Aromasin(Nf)) 25 mg PO DAILY [facility] Last Admin: 12/22/18 08:49 Dose: Not Given Famotidine (Pepcid Tab*) 20 mg PO BID [facility] Last Admin: 12/22/18 08:48 Dose: 20 mg Potassium Chloride/Sodium Chloride (Ns 0.9% W/ 20 Meq Kcl 1000 Ml*) 1,000 mls @ 75 mls/hr IV PER RATE [facility] Last Admin: 12/21/18 17:50 Dose: 75 mls/hr Loperamide HCl (Imodium Cap*) 2 mg PO .SEE DIRECTIONS PRN PRN Reason: DIARRHEA Last Admin: 12/22/18 16:20 Dose: 2 mg Mometasone Furoate (Asmanex 220 Mcg Mdi *) 1 puff INH BEDTIME PRN PRN Reason: SOB/WHEEZING Morphine Sulfate (Ms Contin(*)) 15 mg PO QAM [facility] Last Admin: 12/22/18 08:48 Dose: 15 mg Morphine Sulfate (Ms Contin(*)) 30 mg PO BEDTIME [facility] Last Admin: 12/21/18 21:27 Dose: 30 mg Morphine Sulfate (Morphine Inj (Syringe))*) 2 mg IV Q2H PRN PRN Reason: PAIN Last Admin: 12/22/18 14:24 Dose: 2 mg Ondansetron HCl (Zofran Inj*) 4 mg IV Q4H PRN PRN Reason: NAUSEA/VOMITING Last Admin: 12/22/18 15:34 Dose: 4 mg Tramadol HCl (Ultram*) 50 mg PO Q8H PRN PRN Reason: PAIN Last Admin: 12/21/18 06:10 Dose: 50 mg Vital Signs: Temp Pulse Resp BP Pulse Ox 98.5 F 75 14 105/53 96 12/22/18 15:09 12/22/18 15:09 12/22/18 16:20 12/22/18 15:09 12/22/18 15:09 Exam: Gen: Mildly ill appearing 58 yo female in NAD, appears fatigued HEENT: MMM CV: RRR, no m/r/g Resp: CTA, no w/c/r Abd: quiet BS, diffusely TTP Ext: no edema] [Assessment: []58 yo female with metastatic breast cancer recently progressed and now C2D16 Capecitabine admitted with enteritis, likely viral, however may be medication related. Plan: []1. Enteritis: improving - stop abx at this time - cont to advance diet as tolerated 2. Hypokalemia/hypomagnesemia - replete as necessary 3. Metastatic BCA - hold Xeloda at this time, will likely require a dose reduction when she resumes Dispo: anticipate dc home tomorrow
[2018-12-22] MEDS: NS 0.9% w/ 20 Meq KCL 1000 ML* 1,000 ML IV SCH (17:46)
[2018-12-22] MEDS ORDERED: KCL 10 MEQ/50 ML IVPREMIX* 10 MEQ/50 ML BAG ONE ×2 (19:55→23:44)
[2018-12-22] MEDS: Enoxaparin(*) 40 MG/0.4 ML SYR SUBCUT SCH (20:02)
[2018-12-22] MEDS: KCL 10 MEQ/50 ML IVPREMIX* 10 MEQ/50 ML BAG ONE ×2 (23:46→23:54)
[2018-12-23 02:59] VITALS: BP 116/60
[2018-12-23] MEDS: Loperamide CAP* 2 MG PO PRN (06:12)
[2018-12-23] MEDS: traMADol TAB* 50 MG PO PRN (06:12)
[2018-12-23 07:05] LABS: ABS Eosinophils 0.3 10^3/ul (0-0.6); ABS Lymphocytes 1.2 10^3/ul (1.0-4.8); ABS Monocytes 0.5 10^3/ul (0-0.8); Eosinophil % 8.4 %; Hematocrit 34 % (35-47); Hemoglobin 11.7 g/dL (12.0-16.0); Lymphocyte % 29.2 %; Mean Corpuscular HGB Conc 34 g/dL (31-36); Mean Corpuscular Hemoglobin 36 pg (27-31); Mean Corpuscular Volume 105 fL (80-97); Mean Platelet Volume 7.2 fL (7.4-10.4); Nucleated Red Blood Cells % 0.2; Platelet Count 204 10^3/uL (150-450); Red Blood Count 3.25 10^6 /uL (3.70-4.87); Red Cell Distribution Width 21 % (10.5-15); White Blood Count 4.1 10^3/uL (3.5-10.8)
[2018-12-23 07:19] LABS: Albumin 3.3 g/dL (3.2-5.2); Albumin/Globulin Ratio 1.7 (1-3); BUN/Creatinine Ratio 7.3 (8-20); Calcium 7.3 mg/dL (8.6-10.3); EGFR African American 136.9 (>60); EGFR Non-African American 113.1 (>60); Magnesium 2.3 mg/dL (1.9-2.7); Potassium 3.5 mmol/L (3.5-5.0); Total Bilirubin 1.7 mg/dL (0.2-1.0); Total Protein 5.3 g/dL (6.4-8.9)
[2018-12-23] MEDS: Ondansetron INJ* 2 MG/ML VIAL IV PRN (08:15)
[2018-12-23] MEDS: NS 0.9% w/ 20 Meq KCL 1000 ML* 1,000 ML IV SCH (08:16)
[2018-12-23] MEDS: Morphine TAB Extended Release (*) 15 MG TAB.ER PO SCH (08:17)
[2018-12-23] MEDS: Carvedilol TAB* 3.125 MG PO SCH (08:18)
[2018-12-23] MEDS: Famotidine TAB* 20 MG PO SCH (08:18)
[2018-12-23] MEDS: EXEMESTANE 25 MG PO SCH (08:19)
--- NOTE | 2018-12-24 08:47 | DS ---
DISCHARGE SUMMARY: DATE OF ADMISSION: 12/19/18 DATE OF DISCHARGE: 12/23/18 PRIMARY ONCOLOGIST AND ATTENDING PHYSICIAN: Dr. Vikki Serrano.* (DICTATED BY JONA BURTON) DISCHARGING PROVIDER: JONA Burton PRIMARY DISCHARGE DIAGNOSES: 1. Enteritis - viral versus chemotherapy related. 2. Hypokalemia and hypomagnesemia secondary to gastrointestinal loss - repleted during hospitalization. 3. Metastatic breast cancer, status post cycle 2 of Xeloda. DISCHARGE MEDICATIONS: 1. Calcium carbonate 600 mg p.o. twice daily. 2. Cetirizine 10 mg p.o. daily. 3. Coreg 3.125 mg p.o. daily. 4. Exemestane 25 mg p.o. daily. 5. Flovent 44 mcg inhaled 4 times daily, 2 puffs inhaled daily. 6. Morphine extended release 30 mg p.o. at bedtime and 15 mg in the morning. 7. Zantac 75 mg p.o. twice daily. 8. Rosuvastatin 40 mg p.o. at bedtime. 9. Zofran 4 mg p.o. q.4 hours as needed for nausea and vomiting. 10. Phenergan 25 mg p.o. q.8 hours as needed for nausea and vomiting. HOSPITAL IMAGING: CT abdomen and pelvis 12/19/18: There is a mild bowel wall thickening involving the distal and terminal ileum, possibly secondary to infectious or inflammatory enteritis; chronic appearing and degenerative findings. HOSPITAL COURSE: This is a 58-year-old female with metastatic breast cancer, treated by Dr. Vikki Serrano, who presented to the emergency department on 2 occasions with complaints of nausea and severe diarrhea along with abdominal cramping. Symptoms started almost 5 days prior to her hospitalization and had become progressively worse. She was afebrile and no vomiting at home. She was initially seen in the emergency department earlier in the day on 12/[address] abdomen and pelvis that showed some mild small bowel wall thickening likely associated with an enteritis and she was discharged home with antibiotics. She returned later the same day with persistent symptoms and continued severe diarrhea and subsequently admitted to the hospital for further evaluation and supportive care measures. Initial labs showed a white blood cell count of 6000, hemoglobin of 11.8, platelet count 209,000. Potassium was 3 and normal creatinine. The patient was afebrile at that time. She was empirically treated for GI source of infection with ceftriaxone and Flagyl. Stool culture was collected and sent for evaluation, which was negative for any enteric pathogens. The patient's electrolytes were repleted and her symptoms eventually improved over the period of her hospitalization. At the time of discharge, the patient was able to tolerate soft, bland food and is still having occasional diarrhea, but the frequency and severity had slowed significantly. Her abdominal cramping has resolved and is having no further episodes of nausea. DISPOSITION AND FOLLOWUP PLAN: The patient is being discharged to home in stable condition. She has completed the cycle of Xeloda and will be seen in oncology office later this week for reevaluation. We will plan to initiate cycle 3 with a dose reduction of the Xeloda as her current presentation certainly may have been related to this chemotherapy agent. The patient is instructed to contact oncology office with any recurrent symptoms. JONA BURTON [id number]/[facility] #: [id number] [facility]
== END 2018-12-23 11:35 | disposition home or self-care (01) | DRG 392 ==
LOC: ED 20:43 → SUPCPDRO 20:43 → MED 23:56 → OBSVTOIN 12-20 13:54
PROVIDERS: ADMIT Internal Medicine; ATTEND Internal Medicine Hematology & Oncology
DX: A08.4 Viral intestinal infection, unspecified (principal); C78.00 Secondary malignant neoplasm of unspecified lung; C79.51 Secondary malignant neoplasm of bone; K52.1 Toxic gastroenteritis and colitis; E87.6 Hypokalemia; E83.42 Hypomagnesemia; C50.919 Malignant neoplasm of unspecified site of unspecified female breast; J45.909 Unspecified asthma, uncomplicated; T45.1X5A Adverse effect of antineoplastic and immunosuppressive drugs, initial encounter; Z79.899 Other long term (current) drug therapy; Z88.5 Allergy status to narcotic agent; Z88.2 Allergy status to sulfonamides; Z82.49 Family history of ischemic heart disease and other diseases of the circulatory system; Z80.8 Family history of malignant neoplasm of other organs or systems; Y92.9 Unspecified place or not applicable
CPT/HCPCS: 36415; 80048; 80053; 83735; 85025; 87045; 87046; 87899; 99232; 99233; 99239; 99284; A9270-GY; J0696; J1650; J2270; J2405; J2765; J3010; J3475; J3480; J3490